=== PATIENT | female | born 1930 | race Caucasian/White ===

== ENCOUNTER 2017-12-09 11:29 | Inpatient (IN) | payer OTHER ==
[~2017-12-09] VITALS: Ht 154.9 cm; Wt 50.9 kg
[2017-12-09] MEDS ORDERED: methylPREDNISolone SOD SUCC 125 MG/2 ML VL IV ONE (12:15)
[2017-12-09] MEDS ORDERED: ALBUTEROL SULF 2.5 MG/0.5ML(0.5%) NEB SOLN HHN ONE (12:45)
[2017-12-09] MEDS ORDERED: IPRATROPIUM BROM 0.5 MG/2.5ML INH SOL HHN ONE (12:45)
[2017-12-09] MEDS ORDERED: ANORO (12:47)
[2017-12-09] MEDS ORDERED: LOSA50TA6 PO (12:47)
[2017-12-09] MEDS ORDERED: LEVO75TA6 PO (12:47)
[2017-12-09] MEDS ORDERED: CARV6.2551 PO (12:47)
[2017-12-09] MEDS ORDERED: ATOR40TA52 (12:47)
[2017-12-09] MEDS ORDERED: cefTRIAXone 1GM/10ml IVPUSH 10 ML IV ONE (13:00)
[2017-12-09 13:02] LABS: Basophils # (auto) 0 uL; Basophils % (auto) 0.2 % (0.0-2.0); Eosinophils # (auto) 0 uL; Hematocrit 34.3 % (36.0-46.0); Hemoglobin 11.6 g/dL (12.2-16.2); Lymphocytes # (auto) 0.7 uL; Lymphocytes % (auto) 4.1 % (10.0-50.0); Mean Corpuscular Hemoglobin 31.4 pg (28.0-32.0); Mean Corpuscular Hgb Conc. 33.8 g/dL (32.0-36.0); Mean Corpuscular Volume 92.9 fL (80.0-100.0); Monocytes # (auto) 0.9 uL; Monocytes % (auto) 5.5 % (0.0-12.0); Neutrophils # (auto) 14.7 uL; Neutrophils % (auto) 90.2 % (37.0-80.0); Platelet Count (auto) 206 10^3/uL (140-450); Red Cell Distribution Width 15.2 % (11.8-14.3); White Blood Cell 16.3 10^3/uL (4.4-10.8)
[2017-12-09 13:21] LABS: Alanine Aminotransferase 14 U/L (13-56); Albumin 3.3 g/dL (3.4-5.0); Alkaline Phosphatase 98 U/L (45-117); Anion Gap 11 (5-15); Aspartate Aminotransferase 8 U/L (15-37); BUN/Creatinine Ratio 19.6; Bilirubin, Total 1.1 mg/dL (0.2-1.0); Blood Urea Nitrogen 22 mg/dL (7-18); Calcium 8.3 mg/dL (8.5-10.1); Carbon Dioxide 21 mmol/L (21-32); Chloride 108 mmol/L (98-107); GFR African American 59 mL/min; GFR Non-African American 49 mL/min; Glucose 159 mg/dL (74-106); Magnesium 2.7 mg/dL (1.6-2.6); Potassium 3.9 mmol/L (3.5-5.1); Sodium 140 mmol/L (136-145)
[2017-12-09] MEDS ORDERED: PROMETHAZINE HCL 25 MG/ML 1ML IV PRN (14:45)
[2017-12-09] MEDS ORDERED: DEXTROSE (50%) 50ML SYRG IV PRN ×2 (14:45→18:15)
[2017-12-09] MEDS ORDERED: ACETAMINOPHEN 500 MG TAB PO PRN (14:45)
[2017-12-09] MEDS ORDERED: MORPHINE SULF INJ 2 MG/ML SYRINGE 1ML IV PRN ×2 (14:45)
[2017-12-09] MEDS ORDERED: LORazepam 0.5 MG TAB PO PRN (14:45)
[2017-12-09] MEDS ORDERED: TEMAZEPAM 15 MG CAP PO PRN (14:45)
[2017-12-09] MEDS ORDERED: ALBUTEROL SULF 2.5 MG/0.5ML(0.5%) NEB SOLN NEB PRN (14:45)
[2017-12-09] MEDS ORDERED: LACTULOSE 20Gm/30ML SOLN PO PRN (14:45)
[2017-12-09] MEDS ORDERED: NITROGLYCERIN 0.4 MG SL TAB SL PRN (14:45)
[2017-12-09] MEDS ORDERED: traMADol HCL 50 MG TAB PO PRN (14:45)
[2017-12-09] MEDS: SODIUM CHLORIDE 0.9% 1,000 ML IV SCH (14:56)
[2017-12-09] MEDS: AZITHROMYCIN 500MG/ 250ML 250 ML IV SCH (14:56)
[2017-12-09 15:33] VITALS: BP 126/51
[2017-12-09 16:37] VITALS: BP 107/53
[2017-12-09 17:00] VITALS: BP 107/53
[2017-12-09] MEDS ORDERED: ACCU-CHEK COMFORT CURVE STRIP VI SCH (18:00)
[2017-12-09] MEDS: methylPREDNISolone SOD SUCC 40 MG/ML VL IV SCH ×2 (18:03→23:18)
[2017-12-09] MEDS: IPRATROPIUM BROM 0.5 MG/2.5ML INH SOL NEB SCH (19:23)
[2017-12-09] MEDS: ALBUTEROL SULF 2.5 MG/0.5ML(0.5%) NEB SOLN NEB SCH (19:23)
[2017-12-09] MEDS: ACCU-CHEK COMFORT CURVE STRIP VI SCH ×2 (20:05→23:19)
[2017-12-09] MEDS: InsuLIN REG 1unit/0.01ml Soln (100units/ml) SC SCH ×2 (20:06→23:35)
[2017-12-09 21:30] VITALS: BP 101/53
[2017-12-10] MEDS: IPRATROPIUM BROM 0.5 MG/2.5ML INH SOL NEB SCH ×4 (00:28→19:20)
[2017-12-10] MEDS: ALBUTEROL SULF 2.5 MG/0.5ML(0.5%) NEB SOLN NEB SCH ×4 (00:28→19:21)
[2017-12-10] MEDS: SODIUM CHLORIDE 0.9% 1,000 ML IV SCH ×2 (03:59→20:19)
[2017-12-10] MEDS: ACCU-CHEK COMFORT CURVE STRIP VI SCH ×5 (04:39→20:17)
[2017-12-10] MEDS: InsuLIN REG 1unit/0.01ml Soln (100units/ml) SC SCH ×5 (04:40→20:17)
[2017-12-10 05:00] VITALS: BP 128/69
[2017-12-10] MEDS: methylPREDNISolone SOD SUCC 40 MG/ML VL IV SCH ×3 (05:22→17:53)
[2017-12-10 06:14] LABS: Basophils # (auto) 0 uL; Basophils % (auto) 0.1 % (0.0-2.0); Eosinophils # (auto) 0 uL; Hematocrit 33.1 % (36.0-46.0); Hemoglobin 11.3 g/dL (12.2-16.2); Lymphocytes # (auto) 0.6 uL; Lymphocytes % (auto) 4.4 % (10.0-50.0); Mean Corpuscular Hemoglobin 31.5 pg (28.0-32.0); Mean Corpuscular Hgb Conc. 34.1 g/dL (32.0-36.0); Mean Corpuscular Volume 92.2 fL (80.0-100.0); Monocytes # (auto) 0.2 uL; Monocytes % (auto) 1.5 % (0.0-12.0); Neutrophils # (auto) 13.3 uL; Platelet Count (auto) 196 10^3/uL (140-450); Red Blood Cells 3.59 10^6/uL (4.0-5.20); Red Cell Distribution Width 14.7 % (11.8-14.3); White Blood Cell 14.1 10^3/uL (4.4-10.8)
[2017-12-10 06:32] LABS: Albumin 3.1 g/dL (3.4-5.0); BUN/Creatinine Ratio 26.4; Bilirubin, Total 0.8 mg/dL (0.2-1.0); Calcium 8.5 mg/dL (8.5-10.1); Potassium 3.6 mmol/L (3.5-5.1); Total Protein 6.8 g/dL (6.4-8.2)
[2017-12-10 08:57] VITALS: BP 121/68
[2017-12-10] MEDS: cefTRIAXone 1GM/10ml IVPUSH 10 ML IV SCH (11:17)
[2017-12-10] MEDS: ENOXAPARIN SOD 30 MG/0.3 ML SYRINGE SC SCH (11:18)
[2017-12-10] MEDS: AZITHROMYCIN 500MG/ 250ML 250 ML IV SCH (11:18)
[2017-12-10 13:00] VITALS: BP 112/52
[2017-12-10 17:00] VITALS: BP 110/57
[2017-12-10 22:00] VITALS: BP 124/59
[2017-12-11] MEDS: ACCU-CHEK COMFORT CURVE STRIP VI SCH ×6 (00:01→22:43)
[2017-12-11] MEDS: InsuLIN REG 1unit/0.01ml Soln (100units/ml) SC SCH ×6 (04:07→22:42)
[2017-12-11 05:00] VITALS: BP 146/48
[2017-12-11] MEDS: IPRATROPIUM BROM 0.5 MG/2.5ML INH SOL NEB SCH ×3 (05:24→14:30)
[2017-12-11] MEDS: ALBUTEROL SULF 2.5 MG/0.5ML(0.5%) NEB SOLN NEB SCH ×4 (05:25→18:04)
[2017-12-11] MEDS: methylPREDNISolone SOD SUCC 40 MG/ML VL IV SCH ×4 (05:31→17:27)
[2017-12-11] MEDS: SODIUM CHLORIDE 0.9% 1,000 ML IV SCH ×2 (06:39→22:43)
[2017-12-11 07:50] VITALS: BP 146/48
[2017-12-11] MEDS: cefTRIAXone 1GM/10ml IVPUSH 10 ML IV SCH (09:34)
[2017-12-11] MEDS: ENOXAPARIN SOD 30 MG/0.3 ML SYRINGE SC SCH (09:34)
[2017-12-11] MEDS: AZITHROMYCIN 500MG/ 250ML 250 ML IV SCH (09:35)
[2017-12-11 10:27] VITALS: BP 140/67
[2017-12-11] MEDS: CARVEDILOL 3.125 MG TAB PO SCH ×2 (10:50→22:43)
[2017-12-11] MEDS: LEVOTHYROXINE SODIUM 50 MCG TAB PO SCH (10:53)
[2017-12-11 12:13] LABS: BUN/Creatinine Ratio 28.8; Basophils # (auto) 0 uL; Calcium 8.1 mg/dL (8.5-10.1); Eosinophils # (auto) 0 uL; Hematocrit 32.7 % (36.0-46.0); Hemoglobin 10.8 g/dL (12.2-16.2); Lymphocytes # (auto) 0.5 uL; Lymphocytes % (auto) 3.1 % (10.0-50.0); Mean Corpuscular Hemoglobin 31.1 pg (28.0-32.0); Mean Corpuscular Hgb Conc. 33.2 g/dL (32.0-36.0); Mean Corpuscular Volume 93.7 fL (80.0-100.0); Monocytes # (auto) 0.4 uL; Monocytes % (auto) 2.6 % (0.0-12.0); Neutrophils # (auto) 15.2 uL; Neutrophils % (auto) 94.3 % (37.0-80.0); Platelet Count (auto) 245 10^3/uL (140-450); Potassium 3.6 mmol/L (3.5-5.1); Red Blood Cells 3.49 10^6/uL (4.0-5.20); White Blood Cell 16.1 10^3/uL (4.4-10.8)
[2017-12-11 14:25] VITALS: BP 133/68
[2017-12-11 17:28] VITALS: BP 136/56
[2017-12-11 22:00] VITALS: BP 140/69
[2017-12-12] MEDS: methylPREDNISolone SOD SUCC 40 MG/ML VL IV SCH ×3 (01:42→12:00)
[2017-12-12] MEDS: InsuLIN REG 1unit/0.01ml Soln (100units/ml) SC SCH ×4 (01:43→12:00)
[2017-12-12] MEDS: ACCU-CHEK COMFORT CURVE STRIP VI SCH ×4 (04:00→12:00)
[2017-12-12 05:26] VITALS: BP 155/82
[2017-12-12] MEDS: ALBUTEROL SULF 2.5 MG/0.5ML(0.5%) NEB SOLN NEB SCH ×2 (05:53→09:55)
[2017-12-12] MEDS: IPRATROPIUM BROM 0.5 MG/2.5ML INH SOL NEB SCH ×2 (05:53→09:55)
[2017-12-12 07:27] LABS: Basophils # (auto) 0 uL; Basophils % (auto) 0.1 % (0.0-2.0); Eosinophils # (auto) 0 uL; Hematocrit 33.6 % (36.0-46.0); Hemoglobin 11.2 g/dL (12.2-16.2); Lymphocytes # (auto) 0.5 uL; Lymphocytes % (auto) 3.8 % (10.0-50.0); Mean Corpuscular Hgb Conc. 33.4 g/dL (32.0-36.0); Monocytes # (auto) 0.3 uL; Monocytes % (auto) 2.4 % (0.0-12.0); Neutrophils % (auto) 93.7 % (37.0-80.0); Platelet Count (auto) 254 10^3/uL (140-450); Red Blood Cells 3.61 10^6/uL (4.0-5.20); Red Cell Distribution Width 14.8 % (11.8-14.3); White Blood Cell 12.8 10^3/uL (4.4-10.8)
[2017-12-12 07:39] LABS: Chloride 114 mmol/L (98-107); Potassium 4.2 mmol/L (3.5-5.1); Sodium 146 mmol/L (136-145)
[2017-12-12 07:45] LABS: Alanine Aminotransferase 52 U/L (13-56); Albumin 2.8 g/dL (3.4-5.0); Anion Gap 13 (5-15); Aspartate Aminotransferase 56 U/L (15-37); BUN/Creatinine Ratio 29.4; Blood Urea Nitrogen 25 mg/dL (7-18); Calcium 7.9 mg/dL (8.5-10.1); Carbon Dioxide 19 mmol/L (21-32); GFR African American 82 mL/min; GFR Non-African American 67 mL/min; Glucose 102 mg/dL (74-106)
[2017-12-12] MEDS: LEVOTHYROXINE SODIUM 50 MCG TAB PO SCH (07:46)
[2017-12-12 07:48] LABS: Alkaline Phosphatase 76 U/L (45-117); Bilirubin, Total 0.2 mg/dL (0.2-1.0); Total Protein 6.2 g/dL (6.4-8.2)
[2017-12-12 08:15] VITALS: BP 155/82
[2017-12-12 09:00] VITALS: BP 156/74
[2017-12-12] MEDS: cefTRIAXone 1GM/10ml IVPUSH 10 ML IV SCH (09:44)
[2017-12-12] MEDS: AZITHROMYCIN 500MG/ 250ML 250 ML IV SCH (09:45)
[2017-12-12] MEDS: ENOXAPARIN SOD 30 MG/0.3 ML SYRINGE SC SCH (09:45)
[2017-12-12] MEDS: CARVEDILOL 3.125 MG TAB PO SCH (09:46)
[2017-12-12] MEDS: SODIUM CHLORIDE 0.9% 1,000 ML IV SCH (09:47)
[2017-12-12 11:21] VITALS: BP 156/74
[2017-12-12 11:28] VITALS: BP 156/74
[2017-12-12 13:00] VITALS: BP 163/84
== END 2017-12-12 12:29 | disposition home or self-care (01) | DRG 871 ==
LOC: ER 11:29 → TELE 11:30 → TELE-EAST 16:23
PROVIDERS: ADMIT Internal Medicine; ATTEND Internal Medicine
DX: A41.9 Sepsis, unspecified organism (principal); J18.9 Pneumonia, unspecified organism; J96.00 Acute respiratory failure, unspecified whether with hypoxia or hypercapnia; J44.1 Chronic obstructive pulmonary disease with (acute) exacerbation; J44.0 Chronic obstructive pulmonary disease with (acute) lower respiratory infection; J45.901 Unspecified asthma with (acute) exacerbation; E44.0 Moderate protein-calorie malnutrition; E87.1 Hypo-osmolality and hyponatremia; I69.351 Hemiplegia and hemiparesis following cerebral infarction affecting right dominant side; D63.8 Anemia in other chronic diseases classified elsewhere; Z66 Do not resuscitate; E03.9 Hypothyroidism, unspecified; E78.5 Hyperlipidemia, unspecified; I12.9 Hypertensive chronic kidney disease with stage 1 through stage 4 chronic kidney disease, or unspecified chronic kidney disease; J20.9 Acute bronchitis, unspecified; N18.3 Chronic kidney disease, stage 3 (moderate); Z82.49 Family history of ischemic heart disease and other diseases of the circulatory system; Z87.891 Personal history of nicotine dependence; Z79.899 Other long term (current) drug therapy; Z79.4 Long term (current) use of insulin; Z68.21 Body mass index [BMI] 21.0-21.9, adult
CPT/HCPCS: 36415; 71046; 80048; 80053; 82962; 83036; 83605; 83735; 83880; 84484; 85025; 87040; 93005; 94640; 94761; 96374; 96375; J1815